=== PATIENT | female | born 1980 | race Caucasian/White ===

== ENCOUNTER 2017-10-11 17:04 | Outpatient (CLI) | payer BC ==
[~2017-10-11] VITALS: Ht 162.6 cm; Wt 85.9 kg
[~2017-10-11 17:04] MED LIST: ALLEGRA30 MG PO; Flonase BOTH NARES; Motrin PO; Natalcare Rx,Pramile PO; Percocet 5/325,Endoc PO
[2017-10-11 17:43] VITALS: BP 111/72
[2017-10-11] MEDS ORDERED: ADVAIR 100/501 DISK IH (17:43)
[2017-10-11] MEDS ORDERED: NOVOLIN N100 UNITS/ SC (17:44)
== END 2017-10-11 18:40 | disposition home or self-care (01) ==
LOC: LDRP-OP 17:04 → 2WEST 17:05 → LDRP-OP 12-06 10:05
DX: O35.8XX0 Maternal care for other (suspected) fetal abnormality and damage, not applicable or unspecified (principal); Z3A.00 Weeks of gestation of pregnancy not specified
CPT/HCPCS: 59025; G0378

== ENCOUNTER 2017-10-29 07:35 | Inpatient (IN) | payer BC ==
[2017-10-29] VITALS (23 sets, daily range): BP systolic 93–140; BP diastolic 52–81
[~2017-10-29] VITALS: Ht 162.6 cm; Wt 86.0 kg
[~2017-10-29 07:35] MED LIST changes: +ADVAIR 100/501 DISK IH; +NOVOLIN N100 UNITS/ SC
[2017-10-29] MEDS ORDERED: ADVAIR 100/501 DISK IH (08:04)
[2017-10-29 08:52] LABS: BASOPHIL (%) 0.6 % (0-1); EOSINOPHIL (%) 3.6 % (0-5); EOSINOPHIL COUNT 0.2 K/uL (0-0.3); HEMATOCRIT 33.9 % (36.0-46.0); HEMOGLOBIN 11.2 G/DL (11.9-15.5); IMMATURE GRANULOCYTE (%) 0.7 % (0.0-0.7); LYMPHOCYTE (%) 15.5 % (15-42); LYMPHOCYTE COUNT 1.1 K/uL (1.0-2.8); MCH 28.6 PG (29.0-34.0); MCV 86.7 FL (83-99); MONOCYTE (%) 7.2 % (3-12); MONOCYTE COUNT 0.5 K/uL (0-0.8); NEUTROPHIL (%) 72.4 % (45-76); NEUTROPHIL COUNT 4.9 K/uL (1.8-6.4); PLATELET COUNT 219 K/uL (156-360); RBC DIS.WIDTH-CV 13.4 % (11.8-14.6); RBC DIS.WIDTH-SD 41.6 % (39-53); RED BLOOD COUNT 3.91 M/uL (3.80-5.20); WHITE BLOOD COUNT 6.8 K/uL (4.1-10.2)
[2017-10-29] MEDS ORDERED: IBUPROFEN800 MG PO (20:33)
[2017-10-30 07:33] VITALS: BP 122/72
[2017-10-30 14:55] VITALS: BP 100/61
[2017-10-31 07:13] VITALS: BP 135/73
== END 2017-10-31 10:40 | disposition home or self-care (01) | DRG 774 ==
LOC: LDRP-OP 07:35 → 2WEST 07:36 → LDRP-OP 08:35 → 2WEST 19:44 → LDRP-OP 12-06 18:48
PROVIDERS: Advanced Practice Midwife; Obstetrics & Gynecology
PROC: 0HQ9XZZ Repair Perineum Skin, External Approach (ICD-10-PCS; principal; 2017-10-29)
PROC: 10E0XZZ Delivery of Products of Conception, External Approach (ICD-10-PCS; principal; 2017-10-29)
PROC: 10907ZC Drainage of Amniotic Fluid, Therapeutic from Products of Conception, Via Natural or Artificial Opening (ICD-10-PCS; principal; 2017-10-29)
PROC: 3E033VJ Introduction of Other Hormone into Peripheral Vein, Percutaneous Approach (ICD-10-PCS; principal; 2017-10-29)
PROC: 3E0R3BZ Introduction of Anesthetic Agent into Spinal Canal, Percutaneous Approach (ICD-10-PCS; 2017-10-29)
PROC: 00HU33Z Insertion of Infusion Device into Spinal Canal, Percutaneous Approach (ICD-10-PCS; 2017-10-29)
DX: O24.424 Gestational diabetes mellitus in childbirth, insulin controlled (principal); O99.214 Obesity complicating childbirth; E66.09 Other obesity due to excess calories; Z68.30 Body mass index [BMI] 30.0-30.9, adult; O98.32 Other infections with a predominantly sexual mode of transmission complicating childbirth; A63.0 Anogenital (venereal) warts; O69.1XX0 Labor and delivery complicated by cord around neck, with compression, not applicable or unspecified; O70.0 First degree perineal laceration during delivery; O99.52 Diseases of the respiratory system complicating childbirth; J45.909 Unspecified asthma, uncomplicated; Z3A.39 39 weeks gestation of pregnancy; Z37.0 Single live birth
CPT/HCPCS: 82948; 85025; 94640; 94640 76; C1755; J7120